=== PATIENT | female | born 1970 | race American Indian/Alaskan Native ===

== ENCOUNTER 2020-06-06 16:55 | Observation (INO) | payer MEDICARE ==
[2020-06-06] MEDS ORDERED: SODIUM CHLORIDE 0.9% 1000 ML 1,000 ML IV ONE (22:44)
--- NOTE | 2020-06-06 22:48 | Emergency Department Report ---
HPI - General Chief Complaint: Fever PUI?: Yes Time Seen by Provider: 06/06/20 22:27 - HPI HPI: This is a 50-year-old female who presents to the emergency department with the complaint of some abdominal pain. Through triage the patient was found to have a fever, and low oxygen saturation. The patient does admit to some intermittent shortness of breath and a chronic cough. She also admits to some nausea without vomiting. She denies any chest pain, vaginal bleeding or discharge, dysuria, diarrhea or constipation. She denies any past medical history. The patient just recently moved down here but also says that she was recently homeless. She says that she has been accepted into a halfway facility, allegedly, but they want her to get checked out regarding the abdominal pain and fever. Patient initially refused any supplemental oxygen or Tylenol. She says that she has been taking ibuprofen for her abdominal pain. ED Review of Systems ROS: Stated complaint: Other details as noted in HPI Constitutional: fever, weakness Eyes: denies: eye pain, vision change ENT: denies: ear pain, throat pain Respiratory: cough, shortness of breath Cardiovascular: denies: chest pain, palpitations Gastrointestinal: abdominal pain, nausea. denies: vomiting Genitourinary: denies: dysuria, discharge Musculoskeletal: denies: back pain, arthralgia Skin: denies: rash, lesions Neurological: denies: headache, numbness Physical Exam - Physical Exam Physical Exam: GENERAL: The patient is well-developed well-nourished. HENT: Normocephalic. Atraumatic. Patient has moist mucous membranes. EYES: Extraocular motions are intact. NECK: Supple. Trachea is midline. CHEST/LUNGS: There is some rhonchi heard. No tachypnea or accessory muscle use. A productive sounding cough heard during examination. There is no respiratory distress noted. HEART/CARDIOVASCULAR: Regular. There is no tachycardia. There is no murmur. ABDOMEN: Abdomen is soft, nontender. Patient has normal bowel sounds. SKIN: Skin is warm and dry. NEURO: The patient is awake, alert, and oriented. The patient is cooperative. The patient has no focal neurologic deficits. Normal speech. MUSCULOSKELETAL: There is no tenderness or deformity. There is no limitation range of motion. ED Medical Decision Making - Lab Data Result diagrams: 06/07/20 01:00 06/07/20 01:00 - Radiology Data Radiology results: report reviewed ACUTE ABDOMINAL SERIES INDICATION / CLINICAL INFORMATION: Abdominal pain, fever and cough. COMPARISON: None available. FINDINGS: Upright and supine views of the abdomen demonstrate a normal bowel gas pattern without evidence of obstruction, free air or mass effect. The accompanying chest radiograph demonstrates a normal heart size and borderline pulmonary vasculature. Interstitial lung markings in both mid to lower lung zones are mildly increased. IMPRESSION: 1. No acute intra-abdominal disease is identified. 2. Mild nonspecific interstitial lung disease may be related to edema or pneumonia. - Medical Decision Making This patient presented before the EMR downtime ended. Her initial vitals showed a fever of about 101.5 F and the patient had a room air pulse ox of 88%. The patient's hypoxia was confirmed again showing 89% on room air. The patient initially is refusing oxygen via nasal cannula but eventually did allow us to place the nasal cannula on her. Chest x-ray shows patchy infiltrates bilaterally concerning for edema versus pneumonia. On examination the patient has some rhonchi and a productive sounding cough but does not appear in any respiratory distress. Azithromycin and Rocephin were ordered for the patient but she refused these medications. Patient's labs appear concerning for COVID-19. No leukocytosis and the patient has leukopenia. She also has some elevated inflammatory markers such as D- dimer, CRP, LDH and ferritin. Patient will be admitted to the hospital for further evaluation and treatment and was accepted for medicine by the hospitalist, Dr Choe. The patient was placed in patient isolation and droplet precautions immediately upon arrival to the main emergency department. I wore full PPE gear including a surgical hat, goggles, N95 mask, surgical mask, gown, and double gloves for every encounter. Critical Care Time: Yes Critical care time in (mins) excluding proc time.: 35 Critical care attestation.: If time is entered above; I have spent that time in minutes in the direct care of this critically ill patient, excluding procedure time. Critical care time is spent on this patient in doing her initial evaluation, multiple reevaluations, ordering and interpretation of labs and imaging, supplemental oxygen for hypoxemia, ordered IV antibiotics for the pneumonia, multiple discussions with the patient. Critical Care Time: 35 minutes ED Disposition Clinical Impression: Suspected 2019 novel coronavirus infection, Hypoxemia Pneumonia Qualifiers: Pneumonia type: due to unspecified organism Laterality: bilateral Lung location: unspecified part of lung Qualified Code(s): J18.9 - Pneumonia, unspecified organism Disposition: DC-09 OP ADMIT IP TO THIS HOSP Is pt being admited?: Yes Condition: Serious Time of Disposition: 03:31
--- NOTE | 2020-06-06 23:59 | XRay Report ---
ACUTE ABDOMINAL SERIES INDICATION / CLINICAL INFORMATION: Abdominal pain, fever and cough. COMPARISON: None available. FINDINGS: Upright and supine views of the abdomen demonstrate a normal bowel gas pattern without evidence of ob struction, free air or mass effect. The accompanying chest radiograph demonstrates a normal heart size and borderline pulmonary vasculatu re. Interstitial lung markings in both mid to lower lung zones are mildly increased. IMPRESSION: 1. No acute intra-abdominal disease is identified. 2. Mild nonspecific interstitial lung disease may be related to edema or pneumonia. Signer Name: Paulino Shirley MD Signed: 06/06/2020 11:54 PM Workstation Name: [id number]
[2020-06-07] MEDS ORDERED: AZITHROMYCIN 500 MG in SODIUM CHLORIDE 0.9% 250ML 250 ML IV ONE (00:20)
[2020-06-07] MEDS ORDERED: cefTRIAXone/NS 1 GM/50 ML 1 GM/50 ML BAG IV ONE (00:20)
[2020-06-07 01:50] LABS: Basophils % (Auto) 0.2 % (0.0-1.8); Eosinophils % (Auto) 0.2 % (0.0-4.3); Hematocrit 33.7 % (30.3-42.9); Hemoglobin 10.9 gm/dl (10.1-14.3); Lymphocytes # (Auto) 0.9 K/mm3 (1.2-5.4); Lymphocytes % (Auto) 15.4 % (13.4-35.0); Mean Corpuscular HGB Conc 32 % (30-34); Mean Corpuscular Volume 83 fl (79-97); Monocytes # (Auto) 0.3 K/mm3 (0.0-0.8); Monocytes % (Auto) 4.9 % (0.0-7.3); Platelet Count 474 K/mm3 (140-440); Red Blood Count 4.07 M/mm3 (3.65-5.03); Red Cell Distribution Width 14.7 % (13.2-15.2)
[2020-06-07 02:02] LABS: Alanine Aminotransferase 30 units/L (7-56); Albumin 3.5 g/dL (3.9-5); Blood Urea Nitrogen 9 mg/dL (7-17); Calcium 8.2 mg/dL (8.4-10.2); Hemolysis Index 10
[2020-06-07 02:03] LABS: BUN/Creatinine Ratio 13
[2020-06-07] MEDS ORDERED: MAGNESIUM HYDROXIDE (MOM) ORAL LIQD UDC PO PRN (03:40)
[2020-06-07] MEDS ORDERED: ONDANSETRON 4 MG/2 ML INJ IV PRN (03:40)
[2020-06-07] MEDS ORDERED: MORPHINE 2 MG/1 ML INJ IV PRN (03:40)
[2020-06-07] MEDS ORDERED: ACETAMINOPHEN 325 MG TAB PO PRN (03:40)
--- NOTE | 2020-06-07 03:58 | History and Physical Report ---
History of Present Illness Date of examination: 06/07/20 Date of admission: 06/07/2020 Chief complaint: Cough Fever Abdominal pain History of present illness: 50-year-old female presenting to the emergency room today complaining of abdominal pain. In the course of triage in the ER she was found to be hypoxic and running a low-grade fever. She indicates she has been having some shortness of breath and has had some cough lately. She has also had some nausea but no vomiting or diarrhea. Patient indicates that she was recently homeless but she got accepted into a [facility] facility. She wants her abdominal pain evaluated. Work-up in the emergency room today including chest x-ray and abdominal x-ray reveals: No acute intra-abdominal disease is identified. Mild nonspecific interstitial lung disease may be related to edema or pneumonia. Patient has been admitted for possible pneumonia secondary to COVID-19. She has been placed on isolation precautions. Past History Past Medical History: No medical history Past Surgical History: No surgical history Social history: no significant social history Family history: no significant family history Medications and Allergies Allergies Allergy/AdvReac Type Severity Reaction Status Date / Time iodine Allergy Unknown Verified 06/06/20 23:49 Sulfa (Sulfonamide Allergy Unknown Verified 06/06/20 23:49 Antibiotics) Active Meds: Active Medications Acetaminophen (Tylenol) 650 mg PO Q4H PRN PRN Reason: Pain MILD(1-3)/Fever >100.5/[place] Ceftriaxone Sodium (Rocephin/Ns 2 Gm/100 Ml) 2 gm in 100 mls @ 200 mls/hr IV Q24HR@2200 REYNA[facility]O; Protocol Azithromycin 500 mg/ Sodium (Chloride) 250 mls @ 250 mls/hr IV Q24HR@2200 REYNALDO; Protocol Magnesium Hydroxide (Milk Of Magnesia) 30 ml PO Q4H PRN PRN Reason: Constipation Morphine Sulfate (Morphine) 2 mg IV Q4H PRN PRN Reason: Pain, Moderate (4-6) Ondansetron HCl (Zofran) 4 mg IV Q8H PRN PRN Reason: Nausea And Vomiting Sodium Chloride (Sodium Chloride Flush Syringe 10 Ml) 10 ml IV BID [facility] Sodium Chloride (Sodium Chloride Flush Syringe 10 Ml) 10 ml IV PRN PRN PRN Reason: LINE FLUSH Review of Systems Constitutional: fever, no chills Ears, nose, mouth and throat: no nasal congestion, no sore throat Cardiovascular: no chest pain, no palpitations Respiratory: cough, shortness of breath Gastrointestinal: no nausea, no vomiting, no diarrhea Genitourinary Female: no flank pain, no dysuria, no hematuria Musculoskeletal: no neck pain, no low back pain Integumentary: no rash, no pruritis Neurological: no headaches, no confusion Psychiatric: no anxiety, no depression Exam - Constitutional Vitals: Temp Pulse Resp BP Pulse Ox 87 22 89 06/06/20 23:10 06/06/20 23:10 06/06/20 23:10 General appearance: Present: no acute distress, well-nourished, obese - EENT Eyes: Present: PERRL, EOM intact. Absent: scleral icterus ENT: hearing intact, clear oral mucosa, dentition normal - Neck Neck: Present: supple, normal ROM - Respiratory Respiratory effort: normal Respiratory: bilateral: diminished - Cardiovascular Rhythm: regular Heart Sounds: Present: S1 & S2. Absent: gallop, systolic murmur, diastolic murmur, rub - Extremities Extremities: no ischemia, pulses intact, pulses symmetrical, No edema, Full ROM Peripheral Pulses: within normal limits - Abdominal General gastrointestinal: Present: soft, non-tender, non-distended, normal bowel sounds. Absent: mass - Integumentary Integumentary: Present: clear, warm, dry - Musculoskeletal Musculoskeletal: strength equal bilaterally - Psychiatric Psychiatric: appropriate mood/affect, intact judgment & insight, memory intact, cooperative - Neurologic Neurologic: CNII-XII intact, no focal deficits, moves all extremities Results - Labs CBC & Chem 7: 06/07/20 01:00 06/07/20 01:00 Labs: Abnormal lab results 06/07/20 06/07/20 06/07/20 Range/Units 01:00 01:00 01:00 MCH 27 L (28-32) pg Plt Count 474 H (140-440) K/mm3 Lymph # (Auto) 0.9 L (1.2-5.4) K/mm3 Seg Neutrophils % 79.3 H (40.0-70.0) % D-Dimer 396.51 H (0-234) ng/mlDDU Potassium 3.4 L (3.6-5.0) mmol/L Glucose 129 H (65-100) mg/dL Calcium 8.2 L (8.4-10.2) mg/dL Ferritin (10.0-200.0) ng/mL AST 50 H (5-40) units/L Lactate Dehydrogenase 529 H (91-180) units/L C-Reactive Protein 7.60 H (0.00-1.30) mg/dL Albumin 3.5 L (3.9-5) g/dL 06/07/ Range/Units 01:00 MCH (28-32) pg Plt Count (140-440) K/mm3 Lymph # (Auto) (1.2-5.4) K/mm3 Seg Neutrophils % (40.0-70.0) % D-Dimer (0-234) ng/mlDDU Potassium (3.6-5.0) mmol/L Glucose (65-100) mg/dL Calcium (8.4-10.2) mg/dL Ferritin 246.5 H (10.0-200.0) ng/mL AST (5-40) units/L Lactate Dehydrogenase (91-180) units/L C-Reactive Protein (0.00-1.30) mg/dL Albumin (3.9-5) g/dL Assessment and Plan - Patient Problems (1) Pneumonia Current Visit: Yes Status: Acute Qualifiers: Pneumonia type: due to unspecified organism Laterality: bilateral Lung location: unspecified part of lung Qualified Code(s): J18.9 - Pneumonia, unspecified organism Plan to address problem: Patient placed on empiric IV antibiotics. We await blood culture results. (2) Hypoxemia Current Visit: Yes Status: Acute Plan to address problem: We will place on oxygen and keep O2 saturation greater or equal to 94%. (3) Suspected 2019 novel coronavirus infection Current Visit: Yes Status: Acute Plan to address problem: We will request infectious disease evaluation. Meanwhile we will place on isolation precautions and await COVID-19 testing (4) DVT prophylaxis Current Visit: Yes Status: Acute Plan to address problem: Patient placed on subcutaneous Lovenox. (5) Full code status Current Visit: Yes Status: Acute
[2020-06-07] MEDS ORDERED: dexAMETHasone 4 MG/ML VIAL IV SCH (10:00)
--- NOTE | 2020-06-07 12:13 | Consultation ---
History of Present Illness - Reason for Consult Consult date: 06/07/20 r/o COVID Requesting physician: SANAZ HOLM - History of Present Illness 50 years old female with morbid obesity admitted on 4-day history of dry cough, subjective fever, generalized malaise associated with abdominal pain. Patient denies any diarrhea, nausea, vomiting. Patient is originally from [place], [place], recently moved to [place] to relocate. Patient currently is homeless. On arrival, temperature 99.5, HR 87, RR 22, O2 sat 89% on room air, BP 144/84. Initial WBC 6.1. Hemoglobin 10.9. Creatinine 0.7. Ferritin 246. AST 50. CRP 7.6. D-dimer 396. Chest x-ray shows bilateral interstitial infiltrates. Patient is currently on 3 L nasal cannula oxygen. Review of Systems: reviewed ED and H&P notes. Limited due to PPE conservation strategy Past History Past Medical History: No medical history Past Surgical History: No surgical history Social history: no significant social history Family history: no significant family history Medications and Allergies Allergies Allergy/AdvReac Type Severity Reaction Status Date / Time iodine Allergy Unknown Verified 06/06/20 23:49 Sulfa (Sulfonamide Allergy Unknown Verified 06/06/20 23:49 Antibiotics) Home Medications Medication Instructions Recorded Confirmed Last Taken Type Albuterol Mdi (or & Nicu Only) 2 puff IH QID PRN #8.5 gram 06/07/20 Unknown Rx [ProAir HFA Inhaler] Azithromycin [Zithromax TAB] 500 mg PO QHS #5 tablet 06/07/20 Unknown Rx dexAMETHasone [Decadron] 6 mg PO DAILY #10 tablet 06/07/20 Unknown Rx Active Meds: Active Medications Acetaminophen (Tylenol) 650 mg PO Q4H PRN PRN Reason: Pain MILD(1-3)/Fever >100.5/[place] Azithromycin (Zithromax) 500 mg PO QHS [facility] Stop: 06/11/20 22:01 Dexamethasone (Decadron) 6 mg IV Q24HR [facility] Stop: 06/07/20 14:00 Last Admin: 06/07/20 09:28 Dose: 6 mg Documented by: Dexamethasone (Decadron) 6 mg PO DAILY [facility] Stop: 06/16/20 10:01 Enoxaparin Sodium (Enoxaparin) 40 mg SUB-Q QDAY@2200 [facility]; Protocol Ceftriaxone Sodium (Rocephin/Ns 2 Gm/100 Ml) 2 gm in 100 mls @ 200 mls/hr IV Q24HR@0 [facility]; Protocol Magnesium Hydroxide (Milk Of Magnesia) 30 ml PO Q4H PRN PRN Reason: Constipation Morphine Sulfate (Morphine) 2 mg IV Q4H PRN PRN Reason: Pain, Moderate (4-6) Ondansetron HCl (Zofran) 4 mg IV Q8H PRN PRN Reason: Nausea And Vomiting Sodium Chloride (Sodium Chloride Flush Syringe 10 Ml) 10 ml IV BID [facility] Last Admin: 06/07/20 09:29 Dose: 10 ml Documented by: Sodium Chloride (Sodium Chloride Flush Syringe 10 Ml) 10 ml IV PRN PRN PRN Reason: LINE FLUSH Physical Examination - Physical Exam Narrative exam: Physical Exam: reviewed ED and hospitalist notes, limited due to conservation of PPE and decrease risk of transmission. General appearance: limited due to conservation of PPE Eyes: limited due to conservation of PPE HENT: Atraumatic; limited due to conservation of PPE Lungs: limited due to conservation of PPE CV: limited due to conservation of PPE Abdomen: limited due to conservation of PPE Extremities: limited due to conservation of PPE Skin: limited due to conservation of PPE Psych: limited due to conservation of PPE Neuro: limited due to conservation of PPE - Constitutional Vitals: Vital Signs Temp Pulse Resp BP Pulse Ox 99.5 F 76 20 144/87 96 06/07/20 03:55 06/07/20 03:55 06/07/20 03:55 06/07/20 03:55 06/07/20 03:55 Temperature -Last 24 Hours Temperature 99.5 F Results - Labs CBC & Chem 7: 06/07/20 01:00 06/07/20 01:00 Labs: Abnormal lab results 06/07/20 06/07/20 06/07/20 Range/Units 01:00 01:00 01:00 MCH 27 L (28-32) pg Plt Count 474 H (140-440) K/mm3 Lymph # (Auto) 0.9 L (1.2-5.4) K/mm3 Seg Neutrophils % 79.3 H (40.0-70.0) % D-Dimer 396.51 H (0-234) ng/mlDDU Potassium 3.4 L (3.6-5.0) mmol/L Glucose 129 H (65-100) mg/dL Calcium 8.2 L (8.4-10.2) mg/dL Ferritin (10.0-200.0) ng/mL AST 50 H (5-40) units/L Lactate Dehydrogenase 529 H (91-180) units/L C-Reactive Protein 7.60 H (0.00-1.30) mg/dL Albumin 3.5 L (3.9-5) g/dL 06/07/20 Range/Units 01:00 MCH (28-32) pg Plt Count (140-440) K/mm3 Lymph # (Auto) (1.2-5.4) K/mm3 Seg Neutrophils % (40.0-70.0) % D-Dimer (0-234) ng/mlDDU Potassium (3.6-5.0) mmol/L Glucose (65-100) mg/dL Calcium (8.4-10.2) mg/dL Ferritin 246.5 H (10.0-200.0) ng/mL AST (5-40) units/L Lactate Dehydrogenase (91-180) units/L C-Reactive Protein (0.00-1.30) mg/dL Albumin (3.9-5) g/dL Assessment and Plan Cultures: Blood culture no growth today SARS CoV2 PCR pending Assessment: 50 years old female with morbid obesity admitted with 4-day history of dry cough, subjective fever, generalized malaise and abdominal pain: #Bilateral pneumonia: Suspicion for severe COVID pneumonia. Inflammatory markers are elevated. #Acute hypoxemic respiratory failure: Initial sats to 89%. Currently on 3 L nasal cannula however patient is not wearing the oxygen. #Elevated LFTs: Likely secondary to COVID #Morbid obesity: Associated with worsening outcomes. Recommendations: -Follow-up SARS-CoV-2 PCR result -If SARS-CoV-2 PCR is positive start dexamethasone 6 mg IV/PO qday and start Remdesivir 200 mg IV q day x 1 day followed by 100 mg IV q day x 4 days -Monitor inflammatory markers - ferritin, Ddimer, CRP, LDH -Continue ceftriaxone and azithromycin for now -Follow-up procalcitonin -Close monitoring due to high risk for deterioration, patient is not wearing oxygen/morbidly obese, consider pulmonary consult if oxygenation worsens All laboratory, cultures and imaging were reviewed. Will follow Marisela Bill MD Infectious Diseases Molecular Biology Professor [facility] ([facility]) M [phone] O [phone]
--- NOTE | 2020-06-07 17:24 | Event Note ---
Date: 06/07/20 patient seen and examined 50-year-old female presenting to the emergency room complaining of abdominal pain and SOB. In the ER she was found to be hypoxic and running a low-grade fever. Work-up in the emergency room ncluding chest x-ray and abdominal x-ray reveals: No acute intra-abdominal disease is identified. Mild nonspecific interstitial lung disease may be related to edema or pneumonia. Patient has been admitted for possible pneumonia secondary to COVID-19. She has been placed on isolation precautions, placed on iv abx, ID consulted Her ambulatory O2 sat drops around 87%, patient started on steroid Noted to have elevated D-dimer, will order for CTA chest She has been refusing to get tested for COVID, follow inflammatory markers
[2020-06-07] MEDS ORDERED: cefTRIAXone/NS 2 GM/100 ML 2 GM/100 ML BAG IV SCH (22:00)
[2020-06-07] MEDS ORDERED: AZITHROMYCIN 500 MG in SODIUM CHLORIDE 0.9% 250ML 250 ML IV SCH (22:00)
[2020-06-07] MEDS ORDERED: AZITHROMYCIN 250 MG TAB PO SCH (22:00)
[2020-06-07] MEDS ORDERED: ENOXAPARIN 40 MG/0.4 ML INJ SUB-Q SCH (22:00)
[2020-06-08 08:59] LABS: Hematocrit 34.2 % (30.3-42.9); Hemoglobin 11.1 gm/dl (10.1-14.3); Mean Corpuscular HGB Conc 33 % (30-34); Mean Corpuscular Volume 82 fl (79-97); Platelet Count 509 K/mm3 (140-440); Red Blood Count 4.17 M/mm3 (3.65-5.03); Red Cell Distribution Width 14.5 % (13.2-15.2)
[2020-06-08 09:15] LABS: INR 1.05 (0.87-1.13)
[2020-06-08 09:24] LABS: BUN/Creatinine Ratio 13; Blood Urea Nitrogen 9 mg/dL (7-17); Calcium 8.5 mg/dL (8.4-10.2); Hemolysis Index 6
[2020-06-08] MEDS ORDERED: DEXAMETHASONE 4 MG TAB PO SCH (10:00)
[2020-06-08 10:32] LABS: Basophils % (Manual) 0 % (0.0-1.8); Eosinophils % (Manual) 0 % (0.0-4.3); Platelet Estimate Consistent w Auto; RBC Morphology Normal; Total Cells Counted 100
[2020-06-08 11:52] LABS: Alanine Aminotransferase 29 units/L (7-56); Albumin 3.7 g/dL (3.9-5); BUN/Creatinine Ratio 10; Blood Urea Nitrogen 8 mg/dL (7-17); Calcium 8.4 mg/dL (8.4-10.2)
--- NOTE | 2020-06-08 13:33 | Discharge Summary ---
Providers - Providers Date of Admission: 06/07/20 03:31 Date of discharge: 06/08/20 Attending physician: SARA CONKLIN 06/07/20 03:40 Consult to Physician [CONS] Routine Comment: Consulting Provider: JADA RECIO Physician Instructions: Reason For Exam: PNEUMONIA R/O COVID 19 06/07/20 06:59 Consult to Wound/ET Nurse [CONS] Routine Reason For Exam: wound eval 06/07/20 10:15 Physical Therapy Evaluation and Treat [CONS] Urgent Comment: Reason For Exam: to evaluate mobility status Primary care physician: [employer] BIOLOGIST Hospitalization Condition: Serious Time spent for discharge: 34 minutes Exam - Constitutional Vitals: Temp Pulse Resp BP Pulse Ox 97.6 F 81 20 142/75 94 06/08/20 11:46 06/08/20 11:46 06/08/20 11:46 06/08/20 11:46 06/08/20 11:46 Plan Activity: advance as tolerated Diet: low fat, low salt Special Instructions: home oxygen via (2L n/c) Follow up with: PRIMARY CARE,MD [Primary Care Provider] - 3-5 Days Prescriptions: Azithromycin [Zithromax TAB] 500 mg PO QHS #5 tablet dexAMETHasone [Decadron] 6 mg PO DAILY #10 tablet Albuterol Mdi (or & Nicu Only) [ProAir HFA Inhaler] 2 puff IH QID PRN #8.5 gram PRN Reason: Shortness Of Breath
[2020-06-08 13:58] VITALS: BP 142/75
--- NOTE | 2020-06-08 15:27 | Progress Note ---
Assessment and Plan Cultures: Blood culture no growth today SARS CoV2 PCR pending Assessment: 50 years old female with morbid obesity admitted with 4-day history of dry cough, subjective fever, generalized malaise and abdominal pain: #Bilateral pneumonia: Suspicion for severe COVID pneumonia. Inflammatory markers are elevated.Procal normal. #Acute hypoxemic respiratory failure: Initial sats to 89%. Currently on 2 L maggie al cannula however patient is not wearing the oxygen. #Elevated LFTs: Likely secondary to COVID #Morbid obesity: Associated with worsening outcomes. Recommendations: -Follow-up SARS-CoV-2 PCR result not collected patient refused -Ok to start dexamethasone 6 mg po qday x 10 days -If SARS-CoV-2 PCR is positive start Remdesivir 200 mg IV q day x 1 day followed by 100 mg IV q day x 4 days -Monitor inflammatory markers - ferritin, Ddimer, CRP, LDH -o to stop ceftriaxone and azithromycin- procal normal -Follow-up procalcitonin All laboratory, cultures and imaging were reviewed. Will follow Marisela Bill MD Infectious Diseases Workforce Advisor [facility] ([facility]) M [phone] O [phone] Subjective Date of service: 06/08/20 Principal diagnosis: r/o COVID Interval history: Remains on 2 L NC no fever Objective - Exam Narrative Exam: Physical Exam: reviewed ED and hospitalist notes, limited due to conservation of PPE and decrease risk of transmission. General appearance: limited due to conservation of PPE Eyes: limited due to conservation of PPE HENT: Atraumatic; limited due to conservation of PPE Lungs: limited due to conservation of PPE CV: limited due to conservation of PPE Abdomen: limited due to conservation of PPE Extremities: limited due to conservation of PPE Skin: limited due to conservation of PPE Psych: limited due to conservation of PPE Neuro: limited due to conservation of PPE - Constitutional Vitals: Vital Signs Temp Pulse Resp BP Pulse Ox 97.6 F 81 20 142/75 94 06/08/20 11:46 06/08/20 11:46 06/08/20 11:46 06/08/20 11:46 06/08/20 11:46 Temperature -Last 24 Hours Temperature 97.6 F Temperature 98.7 F Temperature 98.7 F Temperature 98.2 F - Labs CBC & Chem 7: 06/08/20 04:00 06/08/20 08:14 Labs: Abnormal lab results 06/06/20 06/07/20 06/08/20 Range/Units Unknown 01:00 04:00 MCH 27 L (28-32) pg Plt Count 509 H (140-440) K/mm3 Seg Neuts % (Manual) 90.0 H (40.0-70.0) % Lymphocytes % (Manual) 7.0 L (13.4-35.0) % Lymphocytes # (Manual) 0.4 L (1.2-5.4) K/mm3 Potassium 3.4 L 3.4 L (3.6-5.0) mmol/L Glucose 143 H 129 H (65-100) mg/dL Calcium 8.2 L (8.4-10.2) mg/dL AST 51 H 50 H (5-40) units/L Lactate Dehydrogenase 529 H (91-180) units/L C-Reactive Protein 7.60 H (0.00-1.30) mg/dL Albumin 3.7 L 3.5 L (3.9-5) g/dL 06/08/20 Range/Units 08:14 MCH (28-32) pg Plt Count (140-440) K/mm3 Seg Neuts % (Manual) (40.0-70.0) % Lymphocytes % (Manual) (13.4-35.0) % Lymphocytes # (Manual) (1.2-5.4) K/mm3 Potassium (3.6-5.0) mmol/L Glucose 138 H (65-100) mg/dL Calcium (8.4-10.2) mg/dL AST (5-40) units/L Lactate Dehydrogenase (91-180) units/L C-Reactive Protein (0.00-1.30) mg/dL Albumin (3.9-5) g/dL
[2020-06-08] MEDS ORDERED: dexAMETHasone 4 MG/ML VIAL IV SCH (16:00)
== END 2020-06-08 16:54 | disposition left against medical advice (07) ==
LOC: ED 16:55 → 3A 06-07 03:31
PROVIDERS: ADMIT Internal Medicine Geriatric Medicine; ATTEND Internal Medicine
DX: J96.01 Acute respiratory failure with hypoxia (principal); Z20.828 Contact with and (suspected) exposure to other viral communicable diseases; J18.9 Pneumonia, unspecified organism; E66.01 Morbid (severe) obesity due to excess calories; R79.89 Other specified abnormal findings of blood chemistry; Z79.899 Other long term (current) drug therapy
CPT/HCPCS: 36415; 74022; 80048; 80053; 82140; 82728; 82805; 83615; 84145; 85025; 85379; 85610; 86140; 87040; 96365; 96372; 96375; 99291; G0378; J0456; J0696; J1100; J1650; J7030; J7050; J8540; 85007